=== PATIENT | male | born 1950 | race Caucasian/White ===

== ENCOUNTER → 2021-04-30 | Outpatient (CLI) | payer MEDICARE | LOC: KOH-I 11:41 | DX: S49.92XA Unspecified injury of left shoulder and upper arm, initial encounter (principal); N18.1 Chronic kidney disease, stage 1; M19.012 Primary osteoarthritis, left shoulder | CPT/HCPCS: 73030; 73060 ==

== ENCOUNTER → 2021-06-01 | Outpatient (CLI) | payer MEDICARE | LOC: MRI 11:15 | DX: S46.002D Unspecified injury of muscle(s) and tendon(s) of the rotator cuff of left shoulder, subsequent encounter (principal); N18.1 Chronic kidney disease, stage 1; M75.102 Unspecified rotator cuff tear or rupture of left shoulder, not specified as traumatic; M19.012 Primary osteoarthritis, left shoulder | CPT/HCPCS: 73218 ==